=== PATIENT | female | born 1965 | race Caucasian/White ===

== ENCOUNTER 2020-02-26 10:28 | Inpatient (IN) | payer SELFPAY ==
[2020-02-26 11:39] LABS: Bilirubin Negative (Negative); Blood, Urine Negative (Negative); Clarity Clear (Clear); Glucose, Urine (Dipstick) Normal (Negative); Ketone, Urine Negative (Negative); Leukocyte Negative Leu/uL (Negative); Nitrite Negative (Negative); Protein, Urine (Dipstick) Negative (Neg-Trace); Specific Gravity, Urine 1.005 (1.002-1.036); Urobilinogen Normal mg/dL (Less than 2)
[2020-02-26] MEDS ORDERED: Iopamidol-370 76% 500 ML 1 ML ONE (11:45)
[2020-02-26 12:19] LABS: Anion Gap 18 mmol/L (10-20); Carbon Dioxide 21 mmol/L (22-29); Chloride 105 mmol/L (98-107); Potassium 4.7 mmol/L (3.5-5.1); Sodium 139 mmol/L (136-145)
[2020-02-26 12:20] LABS: ALT (SGPT) 22 U/L (8-55); AST (SGOT) 23 U/L (5-34); Albumin 4.1 g/dL (3.5-5.0); Alkaline Phosphatase 69 U/L (40-110); BUN (Urea Nitrogen) 19 mg/dL (9.8-20.1); Bilirubin, Total 0.3 mg/dL (0.2-1.2); Calc. Creatinine Clearance 0 mL/min (70-130); Calcium 8.8 mg/dL (7.8-10.44); Globulin 3.3 g/dL (2.4-3.5); Glucose 88 mg/dL (70-105); Lipase 39 U/L (8-78); Protein, Total 7.4 g/dL (6.0-8.3)
[2020-02-26] MEDS ORDERED: Pantoprazole 40 MG VIAL ONE (12:36)
[2020-02-26] MEDS ORDERED: Ondansetron PF 4 MG/2 ML Vial ONE (12:36)
[2020-02-26 12:48] LABS: #Basophils 0.1 thou/uL (0.0-0.2); #Eosinphils 0.3 thou/uL (0.0-0.7); #Lymphocytes 2.6 thou/uL (1.20-3.40); #Monocytes 0.6 thou/uL (0.11-0.59); #Neutrophils 5.4 thou/uL (1.40-6.50); %Basophils 0.6 % (0.0-1.0); %Eosinophils 3.2 % (0.0-10.0); %Lymphocytes 29.3 % (21.0-51.0); %Monocytes 6.2 % (0.0-10.0); %Neutrophils 60.7 % (42.0-75.0); Hemoglobin 16.3 g/dL (12.0-16.0); Mean Corpuscular HGB CONC 34.3 g/dL (32.0-36.0); Mean Corpuscular Hemoglobin 31.7 pg (27.0-31.0); Mean Corpuscular Volume 92.4 fL (78.0-98.0); Platelet Count 149 thou/uL (130-400); RBC Distribution Width 11.1 % (11.5-14.5); Red Blood Cell (RBC) Count 5.15 mill/uL (4.20-5.40); White Blood Cell (WBC) Count 8.8 thou/uL (4.8-10.8)
[2020-02-26] MEDS ORDERED: Atropine Sulfate 1 mg/10 ml Syringe ONE (13:01)
--- NOTE | 2020-02-26 13:37 | CT ---
EXAM: Abdomen and pelvic CT scan with contrast: HISTORY: Abdominal pain COMPARISON: None FINDINGS: Lungs:No significant acute process. Liver: Unremarkable. Gallbladder:Status post cholecystectomy. Common bile duct:Normal Pancreas:Unremarkable Spleen:Unremarkable. Adrenal glands:Borderline size adrenal glands with a 1.5 cm nodule left adrenal, not adequately yossi cterized on this study. Kidneys:No renal calculus or acute obstruction. Very markedly small scarred right kidney. No evidence for bowel obstruction. Aorta:No evidence for aneurysm. Spine:No significant acute process. Patient gives a history of prior appendectomy although there is a normal-appearing appendix. There is a 3 cm diameter circumscribed focal area of fluid just to the right side of the bladder whic h is contiguous with the bladder. This certainly could represent a right-sided bladder diverticulum. Conceivably this could represent a right ovarian or adnexal cyst immediately adjacent t o the bladder. Reproductive system:Unremarkable as visualized. Colonic diverticulosis without acute diverticulitis primarily involving the sigmoid and left colon. Hernias:None No abscess, adenopathy, or abnormal fluid collection within the abdomen or pelvis. IMPRESSION: No significant acute process in the abdomen and pelvis. Other findings as above.
[2020-02-26 16:52] LABS: Troponin I 0.011 ng/mL (< 0.028)
[2020-02-26] MEDS ORDERED: Cepastat Lozenges 1 LOZ PO PRN (17:00)
[2020-02-26] MEDS ORDERED: Ondansetron PF 4 MG/2 ML Vial IVP PRN (17:19)
--- NOTE | 2020-02-26 17:44 | PDOC.HHP ---
Hospitalist HPI - History of Present Illness History of Present Illness: ADMISSION DATE: 02/26/2020 TIME OF ASSESSMENT: 1510 PRIMARY CARE PHYSICIAN: [place] PCP, city call CHIEF COMPLAINT: Abdominal pain HPI: The patient is a 54-year-old female with past medical history significant for diverticulitis, ovarian cancer and pneumonia. She presented to the ER today for abdominal pain to her left side. She denied diarrhea states she been having small bowel movements. She also endorses that she has had foul-smelling urine for the past few days but denies dysuria. During her assessment the patient had sinus bradycardia down to the 30s. She became lightheaded and dizzy at this time. ER administered 1 dose of atropine and her heart rate returned to the 50s and 60s. Patient states she is not aware of this happening in the past. Patient denies chest pain, shortness of breath, diaphoresis. ED COURSE: Vital Signs: Blood pressure 105/60, pulse 74, respiratory rate 18, O2 saturation 98% on room air, temp 98.7 oral Today in the ER the patient had lab work completed, UA, abdomen and pelvic CT, EKG. She was administered atropine 0.5 mg IV push, 1 L normal saline, Zofran 4 mg IV, Protonix 40 mg IV. PAST MEDICAL HISTORY: Ovarian cancer, pneumonia, recurrent MRSA, diverticulitis PAST SURGICAL HISTORY: Hysterectomy, cholecystectomy, hand and leg surgery SOCIAL HISTORY: Currently a resident at [facility]. Denies alcohol use. No tobacco use in 18 months. Previous meth use but states she has not used any in 18 mon ths. No other illicit drug use. FAMILY HISTORY: thyroid issues, heart issues, cancer ALLERGIES: No known drug allergies CURRENT MEDICATIONS: No home medications Hospitalist ROS - Review of Systems Cardiovascular: reports: light headedness Gastrointestinal: reports: abdominal pain Genitourinary: reports: other (foul smell) All other systems reviewed; all pertinent +/- noted in HPI/Subj - Exam General Appearance: NAD, awake alert ENT: normocephalic atraumatic Heart: RRR (bradycardia, 50s-70s heart rate), no murmur, no gallops, no rubs Respiratory: CTAB, no wheezes, no rales, no ronchi Gastrointestinal: soft, non-tender, non-distended, normal bowel sounds Extremities: 1+ LE edema Musculoskeletal: normal tone, no muscle wasting Psychiatric: normal affect, normal behavior, A&O x 3 Hospitalist Results - Labs Result Diagrams: 02/26/20 12:34 02/26/20 11:45 Lab results: WBC 8.8 thou/uL (4.8-10.8) 02/26/20 12:34 Hgb 16.3 g/dL (12.0-16.0) H 02/26/20 12:34 Hct 47.6 % (36.0-47.0) H 02/26/20 12:34 MCV 92.4 fL (78.0-98.0) 02/26/20 12:34 Plt Count 149 thou/uL (130-400) 02/26/20 12:34 Neutrophils % 60.7 % (42.0-75.0) 02/26/20 12:34 Sodium 139 mmol/L (136-145) 02/26/20 11:45 Potassium 4.7 mmol/L (3.5-5.1) 02/26/20 11:45 Chloride 105 mmol/L (98-107) 02/26/20 11:45 Carbon Dioxide 21 mmol/L (22-29) L 02/26/20 11:45 BUN 19 mg/dL (9.8-20.1) 02/26/20 11:45 Creatinine 0.93 mg/dL (0.6-1.1) 02/26/20 11:45 Glucose 88 mg/dL (70-105) 02/26/20 11:45 Lactic Acid 0.8 mmol/L (0.5-2.2) 02/26/20 12:37 Calcium 8.8 mg/dL (7.8-10.44) 02/26/20 11:45 Total Bilirubin 0.3 mg/dL (0.2-1.2) 02/26/20 11:45 AST 23 U/L (5-34) 02/26/20 11:45 ALT 22 U/L (8-55) 02/26/20 11:45 Alkaline Phosphatase 69 U/L (40-110) 02/26/20 11:45 Troponin I 0.011 ng/mL (< 0.028) 02/26/20 16:20 Serum Total Protein 7.4 g/dL (6.0-8.3) 02/26/20 11:45 Albumin 4.1 g/dL (3.5-5.0) 02/26/20 11:45 Lipase 39 U/L (8-78) 02/26/20 11:45 Urine Ketones Negative mg/dL (Negative) 02/26/20 11:23 Urine Blood Negative (Negative) 02/26/20 11:23 Urine Nitrite Negative (Negative) 02/26/20 11:23 Ur Leukocyte Esterase Negative Ata/uL (Negative) 02/26/20 11:23 - EKG Interpretation EKG: SB PAC 43bpm - Radiology Interpretation CT scan - abdomen Status: image reviewed by me, report reviewed by me Additional Comment: FINDINGS: Lungs:No significant acute process. Liver: Unremarkable. Gallbladder:Status post cholecystectomy. Common bile duct:Normal Pancreas:Unremarkable Spleen:Unremarkable. Adrenal glands:Borderline size adrenal glands with a 1.5 cm nodule left adrenal, not adequately characterized on this study. Kidneys:No renal calculus or acute obstruction. Very markedly small scarred right kidney. No evidence for bowel obstruction. Aorta:No evidence for aneurysm. Spine:No significant acute process. Patient gives a history of prior appendectomy although there is a normal- appearing appendix. There is a 3 cm diameter circumscribed focal area of fluid just to the right side of the bladder which is contiguous with the bladder. This certainly could represent a right-sided bladder diverticulum. Conceivably this could represent a right ovarian or adnexal cyst immediately adjacent to the bladder. Reproductive system:Unremarkable as visualized. Colonic diverticulosis without acute diverticulitis primarily involving the sigmoid and left colon. Hernias:None No abscess, adenopathy, or abnormal fluid collection within the abdomen or pelvis. IMPRESSION: No significant acute process in the abdomen and pelvis. Other findings as above. Hospitalist H&P A/P - Plan Plan: Symptomatic bradycardia Continue to monitor on telemetry overnight If the symptomatic bradycardia returns we will need to consult cardiology in a.m. TSH, mag level, trend troponins May use atropine if symptoms return Patient resolved after atropine in ER with no need for transcutaneous pacing Abdominal pain No acute process noted on CT Has history of diverticulitis Protonix p.o. Analgesics available as needed CODE STATUS: Full Surrogate decision-maker is her daughter, Ariadna Patient has been discussed with Dr. Salgado
[2020-02-26] MEDS: Acetaminophen 325 MG TAB PO PRN (21:16)
[2020-02-27 03:40] LABS: #Eosinphils 0.2 thou/uL (0.0-0.7); #Lymphocytes 2.8 thou/uL (1.20-3.40); #Monocytes 0.5 thou/uL (0.11-0.59); #Neutrophils 2.7 thou/uL (1.40-6.50); %Basophils 0.6 % (0.0-1.0); %Eosinophils 3.1 % (0.0-10.0); %Lymphocytes 45.2 % (21.0-51.0); %Monocytes 7.6 % (0.0-10.0); %Neutrophils 43.5 % (42.0-75.0); Hemoglobin 13.7 g/dL (12.0-16.0); Mean Corpuscular HGB CONC 33.8 g/dL (32.0-36.0); Mean Corpuscular Hemoglobin 31.4 pg (27.0-31.0); Mean Platelet Volume 8.4 fL (7.4-10.4); Platelet Count 149 thou/uL (130-400); RBC Distribution Width 11.2 % (11.5-14.5); Red Blood Cell (RBC) Count 4.35 mill/uL (4.20-5.40); White Blood Cell (WBC) Count 6.3 thou/uL (4.8-10.8)
[2020-02-27 04:05] LABS: Anion Gap 12 mmol/L (10-20); BUN (Urea Nitrogen) 19 mg/dL (9.8-20.1); Calc. Creatinine Clearance 70 mL/min (70-130); Calcium 8.3 mg/dL (7.8-10.44); Carbon Dioxide 23 mmol/L (22-29); Chloride 108 mmol/L (98-107); Glucose 98 mg/dL (70-105); Potassium 4.2 mmol/L (3.5-5.1); Sodium 139 mmol/L (136-145)
[2020-02-27 04:11] LABS: Troponin I Less than 0.010 ng/mL (< 0.028)
[2020-02-27 05:07] LABS: SARS-CoV-2 MS2 Positive; SARS-CoV-2 N Gene Negative; SARS-CoV-2 S Gene Negative; SARS-CoV-2 by NAA Not Detected (NotDetected); SARS-CoV-2 orf1ab Negative
[2020-02-27] MEDS: Acetaminophen 325 MG TAB PO PRN ×2 (08:42→20:02)
[2020-02-27] MEDS ORDERED: FLU VACC QS2020-21(6MOS UP)/PF 60 MCG/0.5 ML SYRINGE IM ONE (09:00)
--- NOTE | 2020-02-27 09:16 | PDOC.HOSPP ---
- Subjective Encounter Date: 02/27/20 Encounter Time: 09:14 Subjective: Overnight patient bradycardic down to the 30s again. She reports she is symptomatic during this episode and felt lightheaded. This is the second captured episode. This morning on exam patient reports she overall feels okay with mild abdominal pain. She denies chest pain or palpitations. Denies changes in vision, numbness, weakness. Chart and medications reviewed. - Objective Vital Signs & Weight: Vital Signs (12 hours) Temp Pulse Resp BP BP BP BP 02/27/20 07:29 98.0 F 44 L 16 106/52 L 02/27/20 03:03 107/65 128/60 119/55 L 02/27/20 02:49 97.6 F 47 L 18 97/59 L Pulse Ox 02/27/20 07:29 97 02/27/20 03:03 02/27/20 02:49 98 Weight Weight 159 lb 15.831 oz I&O: 02/26/20 02/27/20 02/28/20 06:59 06:59 06:59 Intake Total 350 Output Total 200 Balance 150 Result Diagrams: 02/27/20 03:30 02/27/20 03:30 Hospitalist ROS - Review of Systems Constitutional: denies: fever, chills, sweats, weakness, malaise, other Eyes: denies: pain, vision change, conjunctivae inflammation, eyelid inflammation, redness, other ENT: denies: ear pain, ear discharge, nose pain, nose discharge, nose congestion, mouth pain, mouth swelling, throat pain, throat swelling, other Respiratory: denies: cough, dry, shortness of breath, hemoptysis, SOB with excertion, pleuritic pain, sputum, wheezing, other Cardiovascular: denies: chest pain, palpitations, orthopnea, paroxysmal noc. dyspnea, edema, light headedness, other Gastrointestinal: reports: nausea, abdominal pain. denies: vomiting, diarrhea, constipation, melena, hematochezia Genitourinary: denies: dysuria, hematuria Musculoskeletal: denies: neck pain, shoulder pain, arm pain, back pain, hand pain, leg pain, foot pain, other Skin: denies: rash, lesions, memo, bruising, other Neurological: denies: weakness, numbness, incoordination, change in speech, confusion, seizures, other - Medication Medications: Active Medications Generic Name Dose Route Start Last Admin Trade Name Brady PRN Reason Stop Dose Admin Acetaminophen 650 mg 02/26/20 17:00 02/27/20 08:42 Acetaminophen 325 Mg Tab PO 650 mg Q4H PRN Administration Headache/Fever/Mild Pain (1-3) Ondansetron HCl 4 mg 02/26/20 17:19 02/27/20 03:08 Ondansetron Pf 4 Mg/2 Ml Vial IVP 4 mg Q6H PRN Administration Nausea/Vomiting Pantoprazole Sodium 40 mg 02/27/20 09:00 02/27/20 08:41 Pantoprazole 40 Mg Tab PO 40 mg DAILY TEN Administration - Exam General Appearance: NAD, awake alert Eye: PERRL, anicteric sclera ENT: normocephalic atraumatic, no oropharyngeal lesions, moist mucosa Neck: supple, symmetric, no JVD, no thyromegaly, no lymphadenopathy, no carotid bruit Heart: RRR, no murmur, no gallops, no rubs, normal peripheral pulses Respiratory: CTAB, no wheezes, no rales, no ronchi, normal chest expansion, no tachypnea, normal percussion Gastrointestinal: soft, non-tender, non-distended, normal bowel sounds, no palpable masses, no hepatomegaly, no splenomegaly, no bruit Extremities: no cyanosis, no clubbing, no edema Hosp A/P - Plan Symptomatic bradycardia Patient with symptomatic bradycardia in emergency room on admission. Patient bradycardia down to the 30s, improved status post 1 dose of atropine. Patient has not required transcutaneous pacing. Did have repeat episode overnight again down to the 30s and symptomatic. Cardiology consulted for further recommendations. Plan Cardiology consult, recommendations appreciated Telemetry monitoring Atropine as needed Abdominal pain No acute process noted on CT. Incidental finding of 3 cm adnexal mass versus cyst. Patient does have a history of ovarian cancer and will need to follow-up with outpatient gynecology for further evaluation. Patient does have a history of diverticulitis, but CT scan only showed diverticulosis. Patient reports her abdominal pain is mild but improved. Abdomen soft nontender to palpation. Afebrile with no white blood cell count. Lipase 39. AST/ALT 23/22. Plan Serial abdominal exams Protonix Clear liquid diet, advance as tolerated Adnexal Mass CT scan showed incidental finding of 3 cm fluid whitfield ? bladder diverticulum vs R ovarian/adnexal cyst. Patient with history of ovarian cancer. Will need close outpatient follow up. CODE STATUS: Full Surrogate decision-maker is her daughterAriadna Patient has been discussed with Dr. Salgado
--- NOTE | 2020-02-27 19:55 | CON ---
DATE OF CONSULTATION: 02/27/2020 REASON FOR CONSULTATION: Consideration of pacemaker. HISTORY OF PRESENT ILLNESS: This is a 54-year-old woman, who came to the hospital reporting left abdominal pain. She endorses a history of diverticulitis, ovarian cancer, pneumonia, and recurrent MRSA skin infections. In addition to this, she has a history of methamphetamine use, but denies any illicit drug use in the past 6 years, although in other records she says 18 months. This is somewhat unclear. She is currently residing at [facility]. While she was in the emergency room, she had a sinus bradycardia event into the 30s with associated lightheadedness and dizziness. This was responsive to atropine with stabilization of heart rates. She has persisted in sinus bradycardia in the high 40s to low 50s, but has been able to walk around, even ambulating outside of the hospital. Given her bradycardia and dizziness and lightheadedness, EP consultation has been requested for consideration of a pacemaker. She continues to have some mild abdominal discomfort, especially with palpation and she does feel weak at times. She denies any passing-out episodes. She does endorse some orthostatic hypotension and dizziness with position changes. She denies any history of slow heart rates or arrhythmia events. PAST MEDICAL HISTORY: 1. Ovarian cancer. 2. Pneumonia. 3. Recurrent MRSA to the hand, nostril, and face. 4. Diverticulitis. 5. Methamphetamine use. SOCIAL HISTORY: Resident of [facility]. Denies smoking, alcohol, or drug use currently. Has a home in [place] with family support and a daughter who lives locally here. ALLERGIES: NO KNOWN DRUG ALLERGIES. MEDICATIONS: No home medications. OBJECTIVE: VITAL SIGNS: Height 5 feet 2 inches, 160 pounds, BMI 29, temperature 98.2, pulse is 50, blood pressure 105/60, respirations 14, oxygen 97% on room air. GENERAL: Patient is alert, oriented. Speech is clear. No apparent distress. Resting comfortably in bed at the time of the exam. HEENT: She is normocephalic and atraumatic. Her sclerae anicteric. EOMs are intact. Oral mucosa is moist and pink with very poor dentition. NECK: Supple without jugular venous distention. There is no lymphadenopathy. Trachea is midline. CARDIOVASCULAR: Her heart rate is regularly regular, but slow. PMI is nondisplaced. RESPIRATORY: Lungs are clear to auscultation bilaterally without wheezes, crackles, or rhonchi. ABDOMEN: Soft and without palpable masses. She is tender over the left lower quadrant upon palpation. EXTREMITIES: Warm and dry to touch. Well perfused without clubbing, cyanosis, or edema. NEUROLOGIC EXAM: Grossly intact and nonfocal. DATABASE: Telemetry and EKG shows sinus rhythm/sinus bradycardia. There is nighttime bradycardia with heart rates in the high 30s and low 40s while asleep. When she is awake, her heart rate is approximately 50 beats per minute progressing to the mid-to-high 50s up to low 60s with ambulation. There are no pauses greater than 30 seconds. There is no junctional bradycardia or advanced AV block. Her QRS is narrow. CT of the abdomen shows diverticulosis and also questionable ovarian or adnexal cyst adjacent to the bladder on the right side. IMPRESSION: 1. Abdominal pain. 2. Sinus bradycardia. PLAN/RECOMMENDATIONS: Ms. Araujo is a 54-year-old woman, who comes in with abdominal pain and is found to be bradycardic with heart rates in the 40s and 50s. At one point, her heart rate dipped into the 30s with some reported dizziness and lightheadedness. She has had no syncopal episodes. Since then, she has been up ambulating, even able to ambulate outside with no repeat symptoms. She is not on any AV rachael blocking medications. Overall, her heart rates do remain fairly low in the high 40s and low 50s up to 60 beats per minute while ambulating. At this point, I suspect this is related to hypervagotonia possibly associated with her abdominal pain. I see no pauses or severely symptomatic bradycardia. She has had no syncopal events. In addition, she has a history of recurrent MRSA infections, placing her at higher risk for device infection with any type of implant. For now, I would recommend conservative therapy and allow her GI issues to resolve. She may benefit from an outpatient monitor and follow up with Cardiology. At this point, no pacemaker is planned and she is okay for discharge from an electrophysiology perspective. Thank you for allowing me to participate in the care of this patient. Job ID: [id number]
[2020-02-28] MEDS: Acetaminophen 325 MG TAB PO PRN (06:10)
--- NOTE | 2020-02-28 09:35 | PDOC.EP ---
- Subjective Date: 02/28/20 Time: 09:31 Interval History: No new events overnight. - Review of Systems Constitutional: reports: weakness. denies: chills, fever, malaise, sweats, other Respiratory: denies: cough, dry, hemoptysis, pleuritic pain, shortness of breath, SOB with excertion, sputum, wheezing, other Cardiology: denies: chest pain, edema, heart racing, light headedness, paroxysmal noc. dyspnea, orthopnea, palpitations, passing out, pleuritic pain, pressure, swelling, other Gastrointestinal: reports: abdominal pain. denies: constipation, diarrhea, hematochezia, melena, nausea, vomitting, other Musculoskeletal: denies: unstable gait, falls, neck pain, shoulder pain, arm pain, hand pain, leg pain, foot pain, other - Objective Allergies/Adverse Reactions: Allergies Allergy/AdvReac Type Severity Reaction Status Date / Time No Known Drug Allergies Allergy Verified 02/26/20 21:14 Current Medications Acetaminophen (Acetaminophen 325 Mg Tab) 650 mg PO Q4H PRN PRN Reason: Headache/Fever/Mild Pain (1-3) Last Admin: 02/28/20 06:10 Dose: 650 mg Documented by: Ondansetron HCl (Ondansetron Pf 4 Mg/2 Ml Vial) 4 mg IVP Q6H PRN PRN Reason: Nausea/Vomiting Last Admin: 02/27/20 03:08 Dose: 4 mg Documented by: Pantoprazole Sodium (Pantoprazole 40 Mg Tab) 40 mg PO DAILY TEN Last Admin: 02/28/20 08:18 Dose: 40 mg Documented by: Throat Lozenges (Cepastat Lozenges 1 Robe) 1 robe PO Q2H PRN PRN Reason: Sore Throat Vital Signs & Weight: Vital Signs Temp Pulse Resp BP Pulse Ox 02/28/20 07:16 97.9 F 44 L 16 122/62 97 02/28/20 04:00 97.9 F 59 L 14 118/65 95 Weight 159 lb 15.831 oz I/O: I/O 02/27/20 02/28/20 02/29/20 06:59 06:59 06:59 Intake Total 350 1280 Output Total 200 Balance 150 1280 - Physical Exam General: alert & oriented x3, appears well, no apparent distress, speech clear, affect appropriate HEENT: mucus membranes moist, normocephaly Neck: supple neck, midline trachea, no JVD/HJR, no masses, no bruit, no lympha denopathy, no thromegaly Cardiology: regular rate and rhythm, no murmur, regular rate, regular rhythm, PMI nondisplaced Lungs: clear to auscultation, normal breath sounds, normal exam, no wheeze, rales, rhonchi, no wheezes, no rales, no rhonchi Neurology: cranial nerve 2-12 intact, grossly intact, sensory function intact Abdomen: active bowel sounds, no pulsations/bruits, tender (LLQ) Extremities: dry, strong pulses, warm - Labs Result Diagrams: 02/27/20 03:30 02/27/20 03:30 - EKG Interpretation EKG Method: Telemetry EKG shows: Sinus rhythm, Sinus bradycardia - Assessment/Plan Assessment/Plan: 1. Sinus bradycardia 2. Abdominal pain 3. Hx recurrent MRSA skin infections 4. Hx meth use A few episodes of bradycardia into the 30s with associated dizziness/lightheadedness in the setting of more acute abdominal pain. Pain is subsiding and no further symptomatic taco events have been seen. Likely hypervagotonia with her GI issues. I don't recommend a PPM implant at this time. EP signing off. Feel free to contact me if further input/re-evaluation is desired.
[2020-02-28 11:27] VITALS: TEMP 98
[2020-02-28] MEDS ORDERED: Polyethylene Glycol 3350 17 GM Packet PO SCH (11:30)
[2020-02-28] MEDS ORDERED: Bisacodyl 5 MG TAB PO SCH (11:30)
[2020-02-28] MEDS ORDERED: Dicyclomine 20 MG TAB PO SCH (12:45)
[2020-02-28] MEDS ORDERED: Acetaminophen/Codeine 30-300mg Tablet PO PRN (12:59)
[2020-02-28 16:19] VITALS: BP 124/60
--- NOTE | 2020-02-28 17:48 | PDOC.DS.DS ---
Provider - Provider Date of Admission: 02/27/20 14:00 Date of Discharge: 02/28/20 Admitting Provider: Rekha Salgado MD Primary Care Physician: NO PCP PROVIDER Course - Hospital Course Hospital Course: Patient is a 54-year-old female who initially presented to the hospital with left lower abdominal pain. Patient underwent a CT abdomen pelvis with contrast. Patient was noted to have a 3 cm diameter circumscribed focal area of fluid just in the right side of the bladder which is contiguous with the bladder. Patient also was noted to have adrenal gland nodes. I did discuss these findings with the patient gave her a CD and recommended following up with her oncologist given her history of ovarian cancer. She has not had a oophorectomy. Patient was treated with MiraLAX she had a bowel movement her abdominal pain improved. She will be discharged and she will follow up with her oncologist and her primary care in [place]. She was admitted for bradycardia was noted to be symptomatic. At this time she was evaluated by EP who recommended no further intervention. Patient will follow up with a primary care doctor as outpatient. Patient did get a dose of atropine when she was in the ER. Discharge diagnosis #1 symptomatic bradycardia resolved #2 left lower abdominal pain resolved #3 constipation resolved Resuscitation Status: 02/26/20 17:00 Resuscitation Status Routine Co-Sign Provider: Resuscitation Status: FULL: Full Resuscitation Discussed with: pt - Labs Lab Results: 02/27/20 03:30 02/27/20 03:30 Abnormal Lab Results - Last 48 hrs 02/27/20 03:30: Chloride 108 H 02/27/20 03:30: MCH 31.4 H, RDW 11.2 L - Physical Exam Vitals: Vital Signs (12 hours) Temp Pulse Resp BP Pulse Ox 02/28/20 15:20 98.0 F 61 16 124/60 97 02/28/20 11:25 98.0 F 53 L 16 111/55 L 96 02/28/20 07:16 97.9 F 44 L 16 122/62 97 Weight Weight 159 lb 15.831 oz Physical Exam: The patient was seen and examined on the day of discharge. Plan - Discharge Medications Home Medications: Medication Instructions Recorded Confirmed Type hydrOXYzine HCl [hydrOZYzine HCl] 25 mg PO TID PRN 02/26/20 02/26/20 History Allergies: No Known Drug Allergies Allergy (Verified 02/26/20 21:14) - Discharge Instructions Activity:: Activity as Tolerated Nourishment:: Heart Healthy Diet - Follow up Plan Referrals: [facility] [Provider Group] - 7 Days PROVIDER,NO PCP [Primary Care Provider] - 7 Days Disposition: HOME Quality - Care Measures CORE MEASURES:: N/A
[2020-02-28] MEDS ORDERED: Acetaminophen/Codeine 30-300mg Tablet PO SCH (18:00)
== END 2020-02-28 18:55 | DRG 392 ==
LOC: ERS 10:28 → ERHOLD 15:47 → 2NO 19:02 → OBSVTOIN 02-27 14:00
PROVIDERS: ADMIT Internal Medicine; ATTEND Internal Medicine
DX: R10.32 Left lower quadrant pain (principal); Z20.828 Contact with and (suspected) exposure to other viral communicable diseases; R00.1 Bradycardia, unspecified; E27.8 Other specified disorders of adrenal gland; K59.00 Constipation, unspecified; Z85.43 Personal history of malignant neoplasm of ovary; Z90.49 Acquired absence of other specified parts of digestive tract; Z90.710 Acquired absence of both cervix and uterus
CPT/HCPCS: 36415; 74177; 80048; 80053; 81003; 83605; 83690; 83735; 84443; 84484; 85025; 87635; 93005; 93010; 96374; 96375; 96376; C9113; G0378; J0461; J2405; Q9967; U0003